=== PATIENT | female | born 1970 ===

== ENCOUNTER 2017-01-14 07:35 | Emergency (ER) | payer BC ==
[2017-01-14 07:52] VITALS: BP 102/55
--- NOTE | 2017-01-14 08:03 | UC ---
Eye Complaint HPI - HPI Summary HPI Summary: RIGHT EYE IRRITATION X 1 MONTH + SWELLING, PAIN, TEARING , AND REDNESS OF THE RIGHT EYE GETTING WORSE OVER THE PAST 2 DAYS NO FEVER, NO CHILLS, NO COLD SX, NO EYE INJURY , - History of Current Complaint Chief Complaint: UCEye Stated Complaint: RIGHT EYE COMPLAINT Time Seen by Provider: 01/14/17 07:51 Hx Obtained From: Patient Hx Last Menstrual Period: 12/23/16 Onset/Duration: Gradual Onset, Lasting Weeks - 4, Still Present, Worse Since - 2 DAYS AGO Timing: Constant Severity Initially: Mild Severity Currently: Moderate Location of Injury: Conjunctiva, Globe Character: Foreign Body Sensation Aggravating Factor(s): Light Alleviating Factor(s): Nothing Associated Signs And Symptoms: Positive: Photophobia, Drainage (Clear), Drainage (Purulent), Vision Impairment Right, Swelling. Negative: Vision Impairment Left, Fever - Allergies/Home Medications Allergies/Adverse Reactions: Allergies Allergy/AdvReac Type Severity Reaction Status Date / Time Erythromycin Allergy Nausea And Verified 01/14/17 07:42 Vomiting Sulfa Antibiotics Allergy Hives Verified 01/14/17 07:42 Home Medications: Home Medications Loratadine 10 mg PO DAILY 01/14/17 [History Confirmed 01/14/17] PMH/Surg Hx/FS Hx/Imm Hx Previously Healthy: Yes Endocrine History Of: Denies: Diabetes Cardiovascular History Of: Denies: Cardiac Disorders - Surgical History Surgical History: Yes Surgery Procedure, Year, and Place: age 4 cyst removed on foot. WISDOM TEETH EXTRACTIONS - Family History Known Family History: Positive: None - non contributory, Hypertension - Social History Alcohol Use: Rare Substance Use Type: None Smoking Status (MU): Never Smoked Tobacco Review of Systems Constitutional: Negative Skin: Negative Eyes: Blurred Vision, Drainage, Eye Redness, Photophobia ENT: Negative Respiratory: Negative Cardiovascular: Negative Gastrointestinal: Negative Genitourinary: Negative All Other Systems Reviewed And Are Negative: Yes Physical Exam Triage Information Reviewed: Yes Appearance: Well-Appearing, No Pain Distress, Well-Nourished Vital Signs: Initial Vital Signs Temp 97.7 F 01/14/17 07:43 Pulse 86 01/14/17 07:43 Resp 16 01/14/17 07:43 BP 102/55 01/14/17 07:43 Pulse Ox 98 01/14/17 07:43 Vital Signs Reviewed: Yes Eye Exam: Normal Eyes: Positive: Conjunctiva Inflamed - RIGHT EYE, Discharge - RIGHT EYE, Other: - + PHOTOPHOBIA RIGHT EYE ENT: Positive: Normal ENT inspection, Hearing grossly normal, Pharynx normal Neck exam: Normal Neck: Positive: Supple, Nontender, No Lymphadenopathy Respiratory: Positive: Chest non-tender, Lungs clear, Normal breath sounds, No respiratory distress Cardiovascular: Positive: RRR, No Murmur, Pulses Normal Eye Complaint Course/Dx - Differential Dx/Diagnosis Provider Diagnoses: IRITIS Discharge - Discharge Plan Condition: Stable Disposition: HOME Prescriptions: Tobramycin/Dexameth OPTH.SUSP* [Tobradex 0.3-0.1%*] 1 drop RIGHT EYE Q4H #1 btl Patient Education Materials: Iritis (ED) Referrals: Sander Astudillo MD [Primary Care Provider] - 5 Days
== END 2017-01-14 08:17 | disposition home or self-care (01) ==
LOC: UCCORT 07:35
DX: H20.9 Unspecified iridocyclitis (principal); Z88.1 Allergy status to other antibiotic agents; Z88.2 Allergy status to sulfonamides
CPT/HCPCS: 99212; G0463

== ENCOUNTER 2017-09-09 18:21 | Emergency (ER) | payer BC ==
[2017-09-09] MEDS ORDERED: NS 0.9% 1000 ML* 1,000 ML IV ONE (21:23)
[2017-09-09] MEDS ORDERED: Oseltamivir CAP* 75 MG PO ONE (21:23)
--- NOTE | 2017-09-09 21:29 | ED ---
Respiratory - HPI Summary HPI Summary: 46 yr old female with myalgias, runny nose, cough and malaise. Onset yesterday. She has vomiting as well. She is ill appearing and further history not obtainable. - History of Current Complaint Chief Complaint: UCRespiratory Stated Complaint: FLU LIKE SYMPTOMS Time Seen by Provider: 09/09/17 21:02 - Allergy/Home Medications Allergies/Adverse Reactions: Allergies Allergy/AdvReac Type Severity Reaction Status Date / Time Erythromycin Allergy Nausea And Verified 09/09/17 20:50 Vomiting Sulfa Antibiotics Allergy Hives Verified 09/09/17 20:50 Home Medications: Home Medications NK [No Home Medications Reported] 09/09/17 [History Confirmed 09/09/17] PMH/Surg Hx/FS Hx/Imm Hx Endocrine/Hematology History: Denies: Hx Diabetes - Surgical History Surgery Procedure, Year, and Place: age 4 cyst removed on foot. WISDOM TEETH EXTRACTIONS Infectious Disease History: No Infectious Disease History: Denies: Traveled Outside the [place] in Last 30 Days - Family History Known Family History: Positive: None - non contributory, Hypertension - Social History Occupation: Employed Full-time Alcohol Use: Rare Substance Use Type: Reports: None Smoking Status (MU): Never Smoked Tobacco Review of Systems Positive: Fever, Chills Positive: Sore Throat, Nasal Discharge Positive: Cough Positive: Vomiting All Other Systems Reviewed And Are Negative: Yes Physical Exam Triage Information Reviewed: Yes Vital Signs On Initial Exam: Initial Vitals Temp Pulse Resp BP Pulse Ox 99.8 F 133 28 116/57 97 09/09/17 20:51 09/09/17 20:51 09/09/17 20:51 09/09/17 20:51 09/09/17 20:51 Vital Signs Reviewed: Yes Appearance: Positive: Well-Appearing, No Pain Distress Skin: Positive: Skin Color Reflects Adequate Perfusion Head/Face: Positive: Normal Head/Face Inspection ENT: Positive: Pharynx normal, TMs normal Respiratory/Lung Sounds: Positive: Clear to Auscultation, Breath Sounds Present Cardiovascular: Positive: Tachycardia. Negative: Murmur Abdomen Description: Positive: Nontender Musculoskeletal: Positive: Strength/ROM Intact Neurological: Positive: Sensory/Motor Intact, Alert, Oriented to Person Place, Time, CN Intact II-III Psychiatric: Positive: Normal - Paden Coma Scale Best Eye Response: 4 - Spontaneous Best Motor Response: 6 - Obeys Commands Best Verbal Response: 5 - Oriented Diagnostics - Vital Signs Vital Signs Temp Pulse Resp BP Pulse Ox 09/09/17 20:51 99.8 F 133 28 116/57 97 - Laboratory Lab Results: Lab Results 09/09/17 Range/Units 21:07 Influenza A (Rapid) Positive H (Negative) Influenza B (Rapid) Negative (Negative) Lab Statement: Any lab studies that have been ordered have been reviewed, and results considered in the medical decision making process. Disposition - Course Course Of Treatment: 46 yr old with influenza A positive, and ill appearing. Sending to ER by ambulance. Delfin Ruff NP received call in [facility] and they are aware of patient coming. - Diagnoses Provider Diagnoses: Influenza A Discharge - Discharge Plan Condition: Good Disposition: HOME Patient Education Materials: Influenza (ED) Referrals: Geetha Gilmore PA [Primary Care Provider] -
[2017-09-09 21:45] VITALS: BP 76/38
== END 2017-09-09 21:46 | disposition short-term general hospital (02) ==
LOC: UCCORT 18:21
DX: J11.1 Influenza due to unidentified influenza virus with other respiratory manifestations (principal); Z88.1 Allergy status to other antibiotic agents; Z88.2 Allergy status to sulfonamides
CPT/HCPCS: 87502; 99213; A9270-GY; G0463

== ENCOUNTER 2018-02-04 14:17 | Emergency (ER) | payer BC ==
--- OUTSIDE RECORDS SUMMARY | 2018-02-04 14:44 | XMS REPORT ---
:1970 External Reference #:[id number] Author Organization [facility] Address [address] [address] Phone [phone] Care Team Providers Name Role Phone Geetha Gilmore PA Care Team Information Plate Driller Unavailable Payers Type Date Identification Numbers Payment Provider Subscriber Health Maintenance Effective: Policy Number: BCBS Ppo Kacey Ding [employer] ([facility]) 04/25/2017 [id number] PayID: [id number] [address] [address] [place] [address] Problems Description No Information Family History Date Family Member(s) Problem(s) Comments Father No Current Problems Mother No Current Problems Social History Type Date Description Comments Education Highest level completed, Associates Degree Marital Status Occupation Currently Working One-on-one aide. [employer] ETOH Use Rarely consumes alcohol Smoking Patient has never smoked Daily Caffeine Consumes on average 2 cups of coffee per day Daily Caffeine Consumes on average 2 cups of tea per day Allergies, Adverse Reactions, Alerts Date Description Reaction Status Severity Comments 05/15/2017 Sulfa Drugs active Hives 05/15/2017 Erythromycin active Hives/Vomiting Medications Medication Date Status Form Strength Qnty SIG Indications Ordering Provider Xyzal Allergy 10/10/ Active Tablets 5mg 90tabs 1 tablet J30.9 Nilo, 24HR 2018 by mouth Abdirahman, every DO night Benzonatate 06/18/ Active Capsules 200mg 30caps 1 capsule J01.10 Nilo, 2016 up to 3 Abdirahman, times a DO day as needed for cough Goodsense ALL Day 05/15/ Active Tablets 10mg 90tabs 1 by mouth Nilo, Allergy 2017 every day Abdirahman, OTC DO Naproxen 05/15/ Active Tablets 500mg 30tabs 1 tablet Nilo, 2016 by mouth Abdirahman, twice DO daily with food Paroxetine HCL 05/15/ Active Tablets 10mg 90tabs 1 tablet F41.1 Nilo, 2016 by mouth Abdirahman, in the DO morning Levocetirizine 05/15/ Active Tablets 5mg 90tabs take 1 J30.9 Nilo Dihydrochloride 2017 tablet by Abdirahman, mouth DO every evening Oseltamivir 00/ Active Capsules take one Unknown Phosphate 0000 tab by mouth twice a day x 5 days Hydrocortisone 01/02/ Hx Cream 0.1% 15gm Apply R21 Nilo, Butyrate 2018 - small Abdirahman, 01/17/ amount to DO 2018 the R face tid for up to 2 weeks Dicyclomine HCL 10/27/ Hx Tablets 20mg 120tab 1 by mouth Nilo, 2017 - s four times Abdirahman, 01/23/ daily DO 2017 Alprazolam 10/10/ Hx Tablets 0.25mg 1tabs 1 by mouth Nilo, 2017 - prior to Abdirahman, 10/11/ dental DO 2017 procedure Amoxicillin 06/18/ Hx Tablets 875mg 20tabs 1 pill by J01.10 Nilo 2016 - mouth Abdirahman, 10/20/ twice a DO 2017 day x 10 days Xyzal Allergy 05/15/ Hx Tablets 5mg 90tabs 1 tablet J30.9 Nilo, 24HR 2016 - by mouth Abdirahman, 05/15/ every DO 2016 night Vital Signs Date Vital Result Comment 01/23/2018 Weight 198.00 lb Heart Rate 96 /min BP Systolic 124 mmHg BP Diastolic 74 mmHg Respiratory Rate 18 /min Height 62.5 inches 5'2.50" BMI (Body Mass Index) 35.6 kg/m2 01/02/2018 Weight 196.00 lb Heart Rate 80 /min BP Systolic 108 mmHg BP Diastolic 70 mmHg Respiratory Rate 17 /min Height 62.5 inches 5'2.50" BMI (Body Mass Index) 35.3 kg/m2 10/20/2017 Body Temperature 98.7 F Weight 195.00 lb Heart Rate 74 /min BP Systolic 136 mmHg BP Diastolic 72 mmHg Respiratory Rate 18 /min Height 62.5 inches 5'2.50" BMI (Body Mass Index) 35.1 kg/m2 09/16/2017 Body Temperature 97.8 F Weight 193.00 lb Heart Rate 106 /min BP Systolic 118 mmHg BP Diastolic 66 mmHg Respiratory Rate 18 /min Height 62.5 inches 5'2.50" O2 % BldC Oximetry 98 % BMI (Body Mass Index) 34.7 kg/m2 06/18/2017 Weight 200.00 lb BP Systolic 136 mmHg BP Diastolic 72 mmHg Height 62.5 inches 5'2.50" BMI (Body Mass Index) 36.0 kg/m2 05/15/2017 Weight 196.00 lb Heart Rate 72 /min BP Systolic 136 mmHg BP Diastolic 72 mmHg Respiratory Rate 18 /min Height 62.5 inches 5'2.50" BMI (Body Mass Index) 35.3 kg/m2 Results Test Date Test Result H/L Range Note CBC With Auto Diff 10/21/2017 White Blood Count 4.9 K/uL 3.1-10.7 1 Red Blood Count 4.78 M/uL 3.90-5.40 1 Hemoglobin 13.9 gm/dL 11.6-15.8 1 Hematocrit 41.7 % 36.0-46.1 1 Mean Cell Volume 87.2 fl 80.9-99.0 1 Mean Corpuscular HGB 29.1 pg 25.9-32.7 1 Mean Corpuscular HGB Conc 33.3 g/dL 30.8-34.3 1 Platelet Count 246 K/uL 155-360 1 Red Cell Distri Width SD 40.2 fl 3-47 1 Red Cell Distri Width %CV 12.9 % 11.7-14.4 1 Mean Platelet Volume 10.2 fL 8.9-12.4 1 Neut% 52.8 % 40.4-72.8 1 Lymph % 38.5 % 20.0-42.0 1 Juncos % 7.1 % 4.3-13.2 1 Eo% 1.0 % 0.0-6.6 1 Bas% 0.6 % 0.0-1.1 1 Neut# 2.61 K/uL 1.8-7.0 1 Lymph # 1.90 K/uL 1.0-4.0 1 Juncos # 0.35 K/uL 0.3-0.9 1 Eos # 0.05 K/uL 0.0-0.5 1 Baso # 0.03 K/uL 0.0-0.1 1 Comprehensive Met Panel-FCMG 10/21/2017 Glucose 103 mg/dL 74-106 1 BUN 13 mg/dL 7-18 1 Creatinine 0.7 mg/dL 0.6-1.3 1 Glom Filtration Rate, Estimate >60 mL/min >60 1 If >60 mL/min >60 1, 2 BUN/Creat 18.5 ratio 1 Sodium 144 mmol/L 136-145 1 Potassium 3.8 mmol/L 3.5-5.1 1 Chloride 110 mmol/L High 98-107 1 Carbon Dioxide 29 mmol/L 21-32 1 Anion Gap 5 mEq/L Low 8-16 1 Calcium 9.3 mg/dL 8.5-10.1 1 Total Protein 7.1 g/dL 6.4-8.2 1 Albumin 3.7 g/dL 3.4-5.0 1 Globulin 3.4 g/dL 1.9-4.3 1 Alb/Glob 1.1 ratio 1 Bilirubin,Total 0.4 mg/dL 0.2-1.0 1 Sgot/Ast 10 U/L Low 15-37 1, 3 SGPT/Alt 16 U/L 12-78 1 Alkaline Phosphatase 62 U/L 45-117 1 Laboratory test finding 10/21/2017 Thyroid Stim Hormone 1.21 uIU/mL 0.30- 4.20 1 Celiac Disease Comp AB 10/21/2017 Immunoglobulin A 232 mg/dL 87-352 1 Profile Antigliadin Abs, IgG 3 units 0-19 1, 4 Antigliadin Abs, IgA 6 units 0-19 1, 5 Endomysial IgA Antibody Negative Negative 1 t-Transglutaminase IgA <2 U/mL 0-3 1, 6 t-Transglutaminase IgG <2 U/mL 0-5 1, 7 1 R10.84 2 Note: Persistent reduction for 3 months or more in an eGFR <60 mL/min/1.73 m2 defines CKD. Patients with eGFR values >/=60 mL/min/1.73 m2 may also have CKD if evidence of persistent proteinuria is present. The original MDRD equation for estimated GFR is not valid for patients less than 18 years of age. Additional information may be found at www.kdoqi.org. 3 Values below the stated reference ranges of AST and ALT can be seen in normal populations. Clinical correlation is suggested. 4 Negative 0 - 19 Weak Positive 20 - 30 Moderate to Strong Positive >30 5 Negative 0 - 19 Weak Positive 20 - 30 Moderate to Strong Positive >30 6 Negative 0 - 3 Weak Positive 4 - 10 Positive >10 Tissue Transglutaminase (tTG) has been identified as the endomysial antigen. Studies have demonstr- ated that endomysial IgA antibodies have over 99% specificity for gluten sensitive enteropathy. 7 Negative 0 - 5 Weak Positive 6 - 9 Positive >9 Performed at: RN - [facility] [address] [id number] Process Technician: Nahed Hammer MD, Phone: [phone] Procedures Date CPT Code Description Status 09/16/2017 68610 Measure Blood Oxygen Level Single Determination Completed Encounters Type Date Location Provider CPT E/M Dx Office Visit 01/02/2018 2:45p [facility] [place] [address] R21 Z68.35 Office Visit 10/20/2017 4:00p [facility] [place] [address] R10.84 Office Visit 09/16/2017 8:15a [facility] [place] [address] J09.x3 R11.0 Office Visit 06/18/2017 4:00p [facility] [place] [address] F41.1 J30.9 J01.10 Office Visit 05/15/2017 11:00a [facility] [place] [address] F41.1 N94.4 J30.9 H61.22 Plan of Care 01/23/2018 - Geetha Gilmore PAF41.1 Generalized anxiety disorderComments: Continue with current dose of paxilAdvised to call with worsening anxiety or signs of depressionFollow up:4 qszytbI70.35 Body mass index (BMI) 35.0-35.9, adult
[2018-02-04 15:17] LABS: ABS Basophils 0 10^3/ul (0-0.2); ABS Eosinophils 0.1 10^3/ul (0-0.6); ABS Lymphocytes 1.9 10^3/ul (1.0-4.8); ABS Monocytes 0.4 10^3/ul (0-0.8); ABS Neutrophils 9.9 10^3/ul (1.5-7.7); ABS Nucleated RBC 0 10^3/ul; Eosinophil % 0.4 % (0-6); Hematocrit 40 % (35-47); Hemoglobin 13.3 g/dl (12.0-16.0); Lymphocyte % 15.3 % (25-47); Mean Corpuscular HGB Conc 34 g/dl (31-36); Mean Corpuscular Hemoglobin 29 pg (27-31); Mean Corpuscular Volume 86 fL (80-97); Nucleated Red Blood Cells % 0.1; Platelet Count 216 10^3/ul (150-450); Red Blood Count 4.64 10^6/ul (4.00-5.40); Red Cell Distribution Width 13 % (10.5-15); White Blood Count 12.3 10^3/ul (3.5-10.8)
--- NOTE | 2018-02-04 15:25 | RAD ---
Indication: Chest pain, shortness of breath. Sudden onset of symptoms. Comparison: No relevant prior exams available on the [facility] PACS for comparison. Technique: Upright AP 1456 hours Report: Accounting for superimposed soft tissues with large body habitus the lungs and pleural spaces are clear. Negative for pneumothorax. The heart, pulmonary vasculature, and mediastinal contours are unremarkable. IMPRESSION: No evidence for acute intrathoracic disease.
[2018-02-04 15:36] LABS: EGFR Non-African American 77.7 (>60)
[2018-02-04 16:32] LABS: Urine Appearance Clear; Urine Blood Negative (Negative); Urine Color Yellow; Urine Ketones Negative (Negative); Urine Protein Negative (Negative); Urine Specific Gravity 1.008 (1.010-1.030); Urine Urobilinogen Negative (Negative)
[2018-02-04 18:04] VITALS: BP 127/76
--- NOTE | 2018-02-06 10:28 | ED ---
Margie Suggs Julia, scribed for Nick Weir MD on 02/04/18 at 1502 . HPI Chest Pain - HPI Summary HPI Summary: This patient is a 47 year old F BIBA to [facility] accompanied by her with a chief complaint of sudden sharp left anterior chest pain radiating to the 13:00 lasting 10 minutes. Pain was 6/10 in severity. Patient reports diaphoresis SOB with chest pain. Chest pain and SOB is currently resolved. Denies nausea. She is typically sedentary. No recent travel. No recent surgeries. No oral contraceptive use. Denies FHx of AR. Active medications include Lexapril for anxiety. - History of Current Complaint Chief Complaint: EDChestPainROMI Time Seen by Provider: 02/04/18 14:41 Hx Obtained From: Patient Hx Last Menstrual Period: 08/28/17 Onset/Duration: Started Hours Ago, Resolved Time of Onset: 13:00 Timing: Constant Initial Severity: Moderate Current Severity: None Pain Intensity: 6 Pain Scale Used: 0-10 Numeric Chest Pain Location: Left Anterior Chest Pain Radiates: Yes Chest Pain Radiates To:: Jaw Character: Sharp/Stabbing Associated Signs and Symptoms: Positive: Shortness of Breath, Diaphoresis. Negative: Nausea - Allergy/Home Medications Allergies/Adverse Reactions: Allergies Allergy/AdvReac Type Severity Reaction Status Date / Time MS Erythromycin Allergy Nausea And Verified 09/09/17 20:50 [Erythromycin] Vomiting MS Sulfa Antibiotics Allergy Hives Verified 09/09/17 20:50 [Sulfa Antibiotics] Home Medications: Home Medications LevoCETirizine TAB (NF) [Xyzal TAB (NF)] 5 mg PO DAILY 02/04/18 [History Confirmed 02/04/18] PARoxetine HCL TAB* [Paxil TAB*] 10 mg PO DAILY 02/04/18 [History Confirmed ] PMH/Surg Hx/FS Hx/Imm Hx Endocrine/Hematology History: Denies: Hx Diabetes Cardiovascular History: Denies: Hx Hypertension - Surgical History Surgery Procedure, Year, and Place: age 4 cyst removed on foot. WISDOM TEETH EXTRACTIONS Infectious Disease History: No Infectious Disease History: Denies: Traveled Outside the [place] in Last 30 Days - Family History Known Family History: Negative: Cardiac Disease, Hypertension - Social History Alcohol Use: Rare Substance Use Type: Reports: None Smoking Status (MU): Never Smoked Tobacco Review of Systems Positive: Skin Diaphoresis Positive: Chest Pain Positive: Shortness Of Breath Negative: Nausea All Other Systems Reviewed And Are Negative: Yes Physical Exam - Summary Physical Exam Summary: VITAL SIGNS: Reviewed. GENERAL: Patient is a well-developed and nourished female who is lying comfortable in the stretcher. Patient is not in any acute respiratory distress. HEAD AND FACE: No signs of trauma. No ecchymosis, hematomas or skull depressions. No sinus tenderness. EYES: PERRLA, EOMI x 2, No injected conjunctiva, no nystagmus. EARS: Hearing grossly intact. Ear canals and tympanic membranes are within normal limits. MOUTH: Oropharynx within normal limits. NECK: Supple, trachea is midline, no adenopathy, no JVD, no carotid bruit, no c- spine tenderness, neck with full ROM. CHEST: Symmetric, no tenderness at palpation LUNGS: Clear to auscultation bilaterally. No wheezing or crackles. CVS: Regular rate and rhythm, S1 and S2 present, no murmurs or gallops appreciated. ABDOMEN: Soft, non-tender. No signs of distention. No rebound no guarding, and no masses palpated. Bowel sounds are normal. EXTREMITIES: FROM in all major joints, no edema, no cyanosis or clubbing. NEURO: Alert and oriented x 3. No acute neurological deficits. Speech is normal and follows commands. SKIN: Dry and warm Triage Information Reviewed: Yes Vital Signs On Initial Exam: Initial Vitals Temp Pulse Resp BP Pulse Ox 98.4 F 77 18 95/72 96 02/04/18 14:35 02/04/18 14:35 02/04/18 14:35 02/04/18 14:35 02/04/18 14:35 Vital Signs Reviewed: Yes Diagnostics - Vital Signs Vital Signs Temp Pulse Resp BP Pulse Ox 02/04/18 14:35 98.4 F 77 18 95/72 96 - Laboratory Result Diagrams: 02/04/18 15:08 02/04/18 15:08 Lab Statement: Any lab studies that have been ordered have been reviewed, and results considered in the medical decision making process. - Radiology CXR Radiology Interpretation Completed By: Radiologist - No evidence for acute intrathoracic disease. ED Physician has reviewed this report. - EKG 1421 Cardiac Rate: NL - 66 BPM EKG Rhythm: Sinus Rhythm EKG Interpretation: no ST elevations Chest Pain Course/Dx - Course Course Of Treatment: 47 year old F [facility] accompanied by her with a chief complaint of sudden sharp left anterior chest pain radiating to the 13:00 lasting 10 minutes. Pain was 6/10 in severity. Patient reports diaphoresis SOB with chest pain. Chest pain and SOB is currently resolved. Denies nausea. She is typically sedentary. No recent travel. No recent surgeries. No oral contraceptive use. Denies FHx of AR. Bloodwork has no significant abnormalities, except for a WBC 12.3, and D-Dimer less than 200. UA negative for UTI. CXR is negative for acute pathology. Since patient continues to be asymptomatic and has no significant co-morbidities. I have no suspicion acute coronary syndrome or PE, since patient is no hypoxica or tachycardic Therefore she will discharged home and instructed to follow up with PCP. The pt is hemodynamically stable, alert and oriented x3. - Diagnoses Provider Diagnoses: Atypical chest pain Discharge - Sign-Out/Discharge Documenting (check all that apply): Discharge/Admit/Transfer - Discharge Plan Condition: Stable Disposition: HOME Patient Education Materials: Chest Pain (ED) Referrals: Geetha Gilmore PA [Primary Care Provider] - 2 Days Additional Instructions: RETURN TO THE EMERGENCY DEPARTMENT FOR ANY WORSENING OR NEW SYMPTOMS. The documentation as recorded by the Margie quezada Julia accurately reflects the service I personally performed and the decisions made by Destin hernandez Walter, MD.
== END 2018-02-04 18:02 | disposition home or self-care (01) ==
LOC: ED 14:17
DX: R07.89 Other chest pain (principal); R06.02 Shortness of breath
CPT/HCPCS: 36415; 71045; 80053; 81003; 81015; 82550; 82553; 83605; 83735; 83880; 84443; 84484; 85025; 85379; 85730; 87086; 93005; 99284